=== PATIENT | female | born 1990 | race Two or more races ===

== ENCOUNTER 2024-06-04 16:53 | Emergency (ER) | payer OTHER ==
[~2024-06-04] VITALS: Ht 165.1 cm; Wt 82.3 kg
--- NOTE | 2024-06-04 17:53 | ED.PDOC ---
WO[employer] PATTERN[employer]KER HPI Comments HPI: Poor Historian. 34-year-old female found out she was this past Saturday. She is approximately 12 weeks gestation. She is not on any care. She has not seen an OB Gyne doctor yet. Patient complains of episode of vaginal spotting that happened today that was light brown in color but no clots or tissue or heavy bleeding. Patient has some minimal suprapubic pelvic discomfort to palpation. Denies any other acute symptoms. Patient denies any use of drugs Past Medcial History: Hyperlipidemia Past Surgical History: Right knee surgery REVIEW OF SYSTEMS: CONSTITUTIONAL: Denies acute: fever, diaphoresis, chills, generalized weakness. HEAD: Denies acute: headache, photophobia Eyes: Denies acute: Double vision, vision loss, eye pain, eye discharge. EARS: Denies acute: tinnitus, hearing loss, ear discharge, ear pain, THROAT: Denies acute: sore throat, swelling, difficulty swallowing , pain with swallowing, change in voice. NECK: Denies acute: neck pain, neck swelling, stiff neck. HEART: Denies acute : chest pain, palpitations, LUNGS: Denies acute: SOB, wheezing, cough, hemoptysis ABDOMEN: Denies acute: Nausea, Vomiting, diarrhea, melena , hematemesis, hematochezia SKIN: Denies acute: rash, redness, lesions, itchiness. EXTREMITIES: Denies acute: calf pain, numbness, tingling, weakness, denies pain in extremity. Denies acute: Low back pain. Neuro: Denies acute: focal neurological deficit, motor or sensory focal neurological deficit, tremors, seizure like activity, confusion, dizziness, change in mental status, loss of bowel or bladder function, cauda equina like symptoms. : Denies acute: dysuria, hematuria, flank pain, increase in urinary frequency. PSYCH: Denies acute: hallucination, suicidal ideation, homicidal ideation. FEMALE: Denies acute: foul odor, PHYSICAL EXAM: General: no acute distress, awake and alert. Head: normocephalic, atraumatic. Neck: supple, trachea is midline, no swelling. Throat: Normal phonation. Eyes:, no erythema, no purulent discharge, no proptosis, no icterus. Heart: regular rate, regular rhythm, no significant murmur appreciated. Lungs: no apparent respiratory distress, Able to speak in full sentences. No wheezing, no rhonchi, no crackles. No stridors Clear to auscultation bilaterally. Abdomen: Minimal suprapubic tender to palpation, non distended, soft, no guarding, no rebound, + bowel sounds. Neuro: Awake, Alert, oriented to name, self, situation, follows commands GCS=15. Speech is normal. Skin: no petechia, no purpura, no cyanosis, non-pale, not jaundice. Lower extremities: --no - Pitting edema no deformity, no focal swelling, no calf TTP. Makes eye contact. moves all four extremities. Face: no apparent facial droop. Ambulating in the ED independently. Chief Complaint: Vaginal Bleed Time Seen by MD: 16:59 Allergies: Coded Allergies: Morphine (Verified Allergy, Unknown, 06/04/24) Sulfa Antibiotics (Verified Allergy, Unknown, 06/04/24) Information Source: Patient X-Ray, Labs, Meds, VS Vital Signs Date Time Temp Pulse Resp B/P (MAP) Pulse Ox O2 Delivery O2 Flow Rate FiO2 06/04/24 21:58 66 18 99 Room Air* 0 21 06/04/24 21:58 98.3 66 18 126/64 (84) 99 98.3 06/04/24 17:20 97.8 72 16 128/74 (92) 99 Lab Test 06/04/24 18:10 06/04/24 17:24 Range/Units White Blood Count 6.7 4.4-10.8 10^3/uL Red Blood Count 4.53 4.0-5.20 10^6/uL Hemoglobin 14.3 12.2-16.2 g/dL Hematocrit 41.9 36.0-46.0 % Mean Corpuscular Volume 92.6 80.0-100.0 fL Mean Corpuscular Hemoglobin 31.5 28.0-32.0 pg Mean Corpuscular Hemoglobin Concent 34.0 32.0-36.0 g/dL Red Cell Distribution Width 13.4 11.8-14.3 % Platelet Count 420 140-450 10^3/uL Mean Platelet Volume 7.7 6.9-10.8 fL Neutrophils (%) (Auto) 55.9 37.0-80.0 % Lymphocytes (%) (Auto) 31.3 10.0-50.0 % Monocytes (%) (Auto) 10.3 0.0-12.0 % Eosinophils (%) (Auto) 1.6 0.0-7.0 % Basophils (%) (Auto) 0.9 0.0-2.0 % Neutrophils # (Auto) 3.8 1.6-8.6 10 ^3/uL Lymphocytes # (Auto) 2.1 0.4-5.4 10 ^3/uL Monocytes # (Auto) 0.7 0-1.3 10 ^3/uL Eosinophils # (Auto) 0.1 0-0.8 10 ^3/uL Basophils # (Auto) 0.1 0-0.2 10 ^3/uL Nucleated Red Blood Cells 0.1 % Sodium Level 135 L 136-145 mmol/L Potassium Level 3.5 3.5-5.1 mmol/L Chloride Level 106 98-107 mmol/L Carbon Dioxide Level 23 20-31 mmol/L Anion Gap 6 5-15 Blood Urea Nitrogen < 5 L 9-23 mg/dL Creatinine 0.83 0.550-1.02 mg/dL Glomerular Filtration Rate Calc 95 >90 mL/min BUN/Creatinine Ratio 6.0 L 10.0-20.0 Serum Glucose 84 74-106 mg/dL Calcium Level 10.0 8.7-10.4 mg/dL Total Bilirubin 0.7 0.2-1.0 mg/dL Aspartate Amino Transferase (AST) 44 H 13-40 U/L Alanine Aminotransferase (ALT) 136 H 7-40 U/L Alkaline Phosphatase 83 46-116 U/L Total Protein 7.4 5.7-8.2 g/dL Albumin 4.4 3.2-4.8 g/dL Beta HCG, Quantitative 474793.9 H 1.5-4.2 mIU/mL Urine Color Yellow Yellow Urine Clarity Clear Clear Urine pH 6.0 5.0-9.0 Urine Specific [place] 1.026 1.001-1.035 Urine Protein Trace H Negative Urine Ketones 1+ H Negative Urine Blood 1+ H Negative /uL Urine Nitrite Negative Negative Urine Bilirubin Negative Negative Urine Urobilinogen 3 H Negative mg/dL Urine Leukocyte Esterase 1+ Negative /uL Urine RBC 1 0 - 4 /hpf Urine WBC 3 0 - 5 /hpf Urine Squamous Epithelial Cells Few <5 /hpf Urine Bacteria None seen None Seen /hpf Urine Mucus Few None Seen Urine Glucose Normal Normal mg/dL OB EVALUATION, LESS THAN 14 WEEKS CLINICAL HISTORY: vag bleed during COMPARISON: None TECHNIQUE: Grayscale, color-flow Doppler, and spectral Doppler ultrasound of the pelvis is performed by transabdominal and transvaginal technique. FINDINGS: The uterus measures approximately 9.3 x 6.2 x 6.2 cm. Intrauterine gestational sac and pole identified. The gestational sac appears irregular in contour. Mean sac diameter 3.2 cm. [place]-rump length 0.9 cm. Average ultrasound age 7 weeks 4 days. Yolk sac is not visualized. heart rate 111 beats per minute. Presume small subchorionic hematoma adjacent to the gestational sac measuring up to approximately 1.4 cm in diameter. The right ovary measures 3.2 x 2.4 x 3.1 cm. Right ovarian cystic structure measuring approximately 1.3 x 1.2 x 0.7 cm. This may represent a corpus luteum. Right ovary demonstrates dopplerable blood flow on spectral analysis. Left ovary not visualized. Free fluid noted in the cul-de-sac. IMPRESSION: Single living intrauterine gestation as above. History and findings raise the possibility of threatened miscarriage. Recommend close interval follow-up and correlation with serial beta HCG testing. Time of 1ST Reevaluation: 23:40 (The case was discussed with the OB Gyne team (HPI, physical exam, labs and diagnostic tests that were available at the time of disposition, ED course, treatment plan) on the phone. They do not recommend RhoGAM at this time given that the patient's spotting and blade was minimal. They agree with our management. Dr. Chu) Patient Education/Counseling: Diagnosis, Treatment Family Education/Counseling: No Family Present Departure 1 Departure Time of Disposition: 21:46 Impression: Primary Impression: Vaginal bleeding during Additional Impression: Intrauterine Disposition: 01 HOME / SELF CARE / HOMELESS Condition: Stable Additional Instructions: Additional discharge instructions: You MUST follow-up with your primary care/family doctor in 1 to 2 days. If you are unable to see your primary care/family doctor, please return to our emergency room for re-assessment and re-evaluation in 1 to 2 days. Return to the emergency room here in our facility or to the nearest ER [facility] if your symptoms change or worsen. CONSULTATIONS: you MUST Follow-up for consultation as soon as possible with: -OB Gyne doctor in 1-2 days. Please call for appointment You MUST call the consultants office yourself to make an appointment. You may need to arrange that through your insurance and/or your primary/family doctor. If you are unable to see the validation consultant in 1 to 2 days, you must return to our emergency room (or any other ER of your choice) for re-assessment and re- evaluation. Adequate fluid hydration. Repeat beta-hCG levels in 48-72 hours. Repeat pelvic ultrasound in 4-5 days or sooner if needed. Today beta-hCG level is 126,490.0 Absolute pelvic rest. Although unlikely, Your symptoms could be due to possible threatened /miscarriage. Please treat this with ultimate care. Below is a copy of your radiological report for follow up: [place] [id number] Ph: [phone] DIAGNOSTIC IMAGING Diagnostic Imaging Report : [id number] Signed PATIENT: CORNELIUS HENDERSON ACCT: [id number] UNIT: [id number] : 1990 LOC: ER ROOM / BED: / AGE / SEX: 34 / F ADM STATUS: REG ER SERVICE 8520 ORDERING PHYSICIAN: BOBO DWYER DO PROCEDURE(s): OB4US - OB ULTRASOUND COMP LESS 14WKS REASON: vag bleed during ORDER NUMBER(s): [id number], ACCESSION NUMBER(s): [id number] OB EVALUATION, LESS THAN 14 WEEKS CLINICAL HISTORY: vag bleed during COMPARISON: None TECHNIQUE: Grayscale, color-flow Doppler, and spectral Doppler ultrasound of the pelvis is performed by transabdominal and transvaginal technique. FINDINGS: The uterus measures approximately 9.3 x 6.2 x 6.2 cm. Intrauterine gestational sac and pole identified. The gestational sac appears irregular in contour. Mean sac diameter 3.2 cm. [place]-rump length 0.9 cm. Average ultrasound age 7 weeks 4 days. Yolk sac is not visualized. heart rate 111 beats per minute. Presume small subchorionic hematoma adjacent to the gestational sac measuring up to approximately 1.4 cm in diameter. The right ovary measures 3.2 x 2.4 x 3.1 cm. Right ovarian cystic structure measuring approximately 1.3 x 1.2 x 0.7 cm. This may represent a corpus luteum. Right ovary demonstrates dopplerable blood flow on spectral analysis. Left ovary not visualized. Free fluid noted in the cul-de-sac. IMPRESSION: Single living intrauterine gestation as above. History and findings raise the possibility of threatened miscarriage. Recommend close interval follow-up and correlation with serial beta HCG testing. ATED BY: BLADIMIR SANTOS MD DICTATED DATE/TIME: 06/04/241914 SIGNED BY: BLADIMIR SANTOS MD SIGNED DATE/TIME: 06/04/241914 CC: Discharged With: Self I personally scribed for BOBO DWYER DO ([email or web address]) on 06/05/24 at 00:49. Electronically submitted by Keith Patel ([email or web address]). BOBO DWYER DO Jun 04, 2024 17:53
[2024-06-04 18:58] LABS: Basophils # (auto) 0.1 10 ^3/uL (0-0.2); Basophils % (auto) 0.9 % (0.0-2.0); Eosinophils # (auto) 0.1 10 ^3/uL (0-0.8); Eosinophils % (auto) 1.6 % (0.0-7.0); Hematocrit 41.9 % (36.0-46.0); Hemoglobin 14.3 g/dL (12.2-16.2); Lymphocytes # (auto) 2.1 10 ^3/uL (0.4-5.4); Lymphocytes % (auto) 31.3 % (10.0-50.0); Mean Corpuscular Hemoglobin 31.5 pg (28.0-32.0); Mean Corpuscular Volume 92.6 fL (80.0-100.0); Monocytes # (auto) 0.7 10 ^3/uL (0-1.3); Monocytes % (auto) 10.3 % (0.0-12.0); Neutrophils # (auto) 3.8 10 ^3/uL (1.6-8.6); Neutrophils % (auto) 55.9 % (37.0-80.0); Nucleated Red Blood Cells % 0.1 %; Platelet Count (auto) 420 10^3/uL (140-450); Red Blood Cells 4.53 10^6/uL (4.0-5.20); Red Cell Distribution Width 13.4 % (11.8-14.3); White Blood Cell 6.7 10^3/uL (4.4-10.8)
[2024-06-04 19:07] LABS: Albumin 4.4 g/dL (3.2-4.8); Alkaline Phosphatase 83 U/L (46-116); Anion Gap 6 (5-15); Carbon Dioxide 23 mmol/L (20-31); Chloride 106 mmol/L (98-107); Glucose 84 mg/dL (74-106)
[2024-06-04 19:08] LABS: Bilirubin, Total 0.7 mg/dL (0.2-1.0); Total Protein 7.4 g/dL (5.7-8.2)
[2024-06-04 19:11] LABS: Urine Bacteria None Seen /hpf (None Seen)
[2024-06-04 19:11] LABS: Alanine Aminotransferase 136 U/L (7-40); Aspartate Aminotransferase 44 U/L (13-40); Blood Urea Nitrogen < 5 mg/dL (9-23); Potassium 3.5 mmol/L (3.5-5.1); Sodium 135 mmol/L (136-145)
--- NOTE | 2024-06-04 19:18 | DVH ---
OB EVALUATION, LESS THAN 14 WEEKS CLINICAL HISTORY: vag bleed during COMPARISON: None TECHNIQUE: Grayscale, color-flow Doppler, and spectral Doppler ultrasound of the pelvis is performed by transabdominal and transvaginal technique. FINDINGS: The uterus measures approximately 9.3 x 6.2 x 6.2 cm. Intrauterine gestational sac and pole identified. The gestational sac appears irregular in cont our. Mean sac diameter 3.2 cm. [place]-rump length 0.9 cm. Average ultrasound age 7 weeks 4 days. Yolk sac is not visualized. heart rate 111 beats per minute. Presume small subchorionic hematoma adjacent to the gestational sac measuring up to approximately 1.4 cm in diameter. The right ovary measures 3.2 x 2.4 x 3.1 cm. Right ovarian cystic structure measuring approximately 1 .3 x 1.2 x 0.7 cm. This may represent a corpus luteum. Right ovary demonstrates dopplerable blood albert w on spectral analysis. Left ovary not visualized. Free fluid noted in the cul-de-sac. IMPRESSION: Single living intrauterine gestation as above. History and findings raise the possibility of threaten ed miscarriage. Recommend close interval follow-up and correlation with serial beta HCG testing.
[2024-06-04 19:30] LABS: Urine Blood 1+ /uL (Negative); Urine Clarity Clear (Clear); Urine Color Yellow (Yellow); Urine Mucus FEW (None Seen); Urine Protein, UAD TRACE (Negative); Urine Specific Gravity 1.026 (1.001-1.035); Urine Squamous Epithelial Cell FEW /hpf (<5); Urine Urobilinogen 3 mg/dL (Negative); Urine WBC 3 /hpf (0 - 5)
[2024-06-04 21:58] VITALS: BP 126/64; PULSE 66; RESP 18; TEMP 98.3; O2SAT 99
== END 2024-06-04 21:58 | disposition home or self-care (01) ==
LOC: ER 16:53
DX: O41.1210 Chorioamnionitis, first trimester, not applicable or unspecified (principal); R10.2 Pelvic and perineal pain; O26.891 Other specified pregnancy related conditions, first trimester; N93.9 Abnormal uterine and vaginal bleeding, unspecified; E78.5 Hyperlipidemia, unspecified; Z3A.12 12 weeks gestation of pregnancy; Z98.890 Other specified postprocedural states
CPT/HCPCS: 36415; 76801; 76817; 80053; 81001; 84702; 85025; 86850; 86900; 86901